=== PATIENT | male | born 1960 | race Caucasian/White ===

== ENCOUNTER 2016-10-03 17:20 | Inpatient (IN) ==
--- NOTE | 2016-10-03 17:46 | Emergency Department Note ---
Disposition Clinical Impression: Cellulitis of hand Dog bite Qualifiers: Encounter type: initial encounter Qualified Code(s): W54.0XXA - Bitten by dog, initial encounter Disposition: Admitted As Inpatient Condition: Fair Referrals: Gisele Vilchis DO [Primary Care Provider] - Forms: Work/School Release, ED Satisfaction Letter Time of Disposition: 19:50 Animal Bite HPI - General Chief Complaint: ED General Medical Stated Complaint: dog bite to right hand// swelling// R abd pain Time Seen by Provider: 10/03/16 17:34 Source: patient Mode of arrival: ambulatory Limitations: no limitations Nursing Notes Reviewed: Yes Vital Signs Reviewed: Yes - History of Present Illness HPI Narrative: 55-year-old male who comes in after his dog bit him on the right hand on Tuesday. States he's had increasing swelling and pain to the hand. Has a lot of trouble with making a fist. He states the swelling has progressed significantly. The dog is his dog is up-to-date on shots and they have him at home. Pt Subjective Complaint: animal bite Onset (ago): day(s) Animal: dog (2) Description of Animal: household pet Mechanism: bite Right: hand Pain Description: constant Associated symptoms: Reports: erythema - Related Data Allergies Allergy/AdvReac Type Severity Reaction Status Date / Time atorvastatin [From Lipitor] Allergy See Verified 10/03/16 17:30 Comments All systems ED: reviewed and negative except as stated. Constitutional: Denies: fever, chills, weakness, weight change Eyes: Denies: eye pain, eye discharge, vision change ENT ED: Denies: ear pain, throat pain, dental pain, hearing loss, epistaxis, congestion, dysphagia Cardiovascular: Denies: chest pain, palpitations, dyspnea on exertion, edema, syncope Respiratory: Denies: cough, dyspnea, wheezes, hemoptysis, stridor Gastrointestinal: Denies: abdominal pain, nausea, vomiting, diarrhea, constipation, hematemesis, melena, hematochezia Genitourinary: Denies: urgency, dysuria, frequency, hematuria Musculoskeletal: Reports: arthralgia. Denies: back pain, neck pain, myalgia Integumentary: Denies: rash, abrasion, lesions Neurological: Denies: headache, weakness, numbness, paresthesias, confusion, abnormal gait, vertigo Psychiatric: Denies: anxiety, depression, suicidal thoughts, homicidal thoughts , auditory hallucinations, visual hallucinations Endocrine: Denies: fatigue Hematological/Lymphatic: Denies: easy bleeding, easy bruising Allergic/Immunologic: Denies: facial swelling, urticaria Past Medical History - Past Medical History Medical history: Reports: CVA, hypertension - Social History Smoking Status: Current every day smoker Smokeless Tobacco Status: No Alcohol use: Reports: heavy Drug use: Reports: none Physical Exam - General Limitations: no limitations General appearance: alert - Head Head exam: atraumatic, normocephalic, normal inspection - Eye Eye exam: Present: normal appearance, PERRL, EOMI - ENT ENT exam: normal exam, normal oropharynx, mucous membranes moist - Neck Neck exam: Present: normal inspection, full ROM, trachea midline - Chest Chest inspection: Present: normal inspection, symmetric chest wall rise - Respiratory Respiratory exam: Present: normal lung sounds bilaterally - Cardiovascular Cardiovascular exam: Present: regular rate, normal rhythm, normal heart sounds - Abdominal Exam Abdominal exam: Present: soft, Non-Tender. Absent: tenderness, distention, guarding, rebound, rigidity - Expanded Upper Extremity Exam Hand exam: Present: other (Patient has a puncture wound at E [place] eminence with significant swelling and tenderness along the tendon.) - Expanded Lower Extremity Exam Neurovascular/Tendon exam: Present: normal capillary refill Gait: observed and normal - Back Exam Back exam: Present: normal inspection - Neurological Exam Neurological exam: Present: alert, oriented X3 - Psychiatric Psychiatric exam: Present: normal affect, normal mood - Skin Skin exam: Present: rash Course - Reevaluation(s) Reevaluation #1: 55-year-old who comes in with dog bite of his hand 2 days ago without signs of infection with some signs of deep infection with tenderness along the flexor tendon. CT scan does show a complex fluid collection in the flexor tendon and recommendations for MRI. I discussed the case with the hand surgeon who will see the patient in consult by go ahead and admit he was given IV Zosyn. Time: 19:49 - Consultations Consultation #1: Discussed with Dr. Arce, admit. Time: 17:55 Consultation #2: Discussed with , it. Time: 19:49 Vital Signs Temperature 98.4 F 10/03/16 17:25 Pulse Rate 90 10/03/16 17:25 Respiratory Rate 18 10/03/16 17:25 Blood Pressure 176/109 10/03/16 17:25 O2 Sat by Pulse Oximetry 98 10/03/16 17:25 Temperature 98.4 F 10/03/16 17:25 Pulse Rate 90 10/03/16 17:25 Respiratory Rate 18 10/03/16 17:25 Blood Pressure 176/109 10/03/16 17:25 O2 Sat by Pulse Oximetry 98 10/03/16 17:25 Animal Bite - Lab Data Lab results reviewed: Yes I reviewed the patient's lab results. Result diagrams: 10/03/16 18:09 10/03/16 18:09 Lab Results 10/03/16 10/03/16 10/03/16 Range/Units 18:09 18: 18:09 WBC 13.3 H (4.3-11.1) K/mcL RBC 4.41 (4.19-5.50) M/mcL Hgb 14.3 (12.9-16.9) g/dL Hct 41.6 (37.5-50.1) % MCV 94.3 (83.0-100.0) fL MCH 32.4 (28.0-33.3) pg MCHC 34.4 (31.6-35.5) g/dL RDW 12.1 (11.5-14.5) % Plt Count 226 (140-400) K/mcL MPV 10.4 (9.4-12.4) fL Immature Gran % 0.6 (0-4) % Seg Neutrophils % 60.5 % Lymphocytes % 27.8 % Monocytes % 8.8 % Eosinophils % 1.7 % Basophils % 0.6 % Neutrophils # 8.0 (1.6-8.9) K/mcL Lymphocytes # 3.7 (0.6-4.6) K/mcL Monocytes # 1.2 (0.0-1.3) K/mcL Eosinophils # 0.2 (0.0-0.6) K/mcL Basophils # 0.1 (0.0-0.2) K/mcL ESR 13 H (0-10) mm/hr Sodium 141 (136-145) mEq/L Potassium 2.8 L (3.5-4.5) mEq/L Chloride 103 (98-109) mEq/L Carbon Dioxide 28 (19-29) mEq/L BUN 15 (8-26) mg/dL Creatinine 0.89 (0.72-1.25) mg/dL Est GFR ( Amer) > 60 (> 60) Est GFR (Non-Af Amer) > 60 (> 60) BUN/Creatinine Ratio 17 (6-26) Glucose 97 (70-99) mg/dL Calculated Osmolality 293 (280-300) Calcium 9.4 (8.6-10.8) mg/dL - Radiology Data Radiology results reviewed: Yes I reviewed the patient's radiology results. Hand CT 10/03/16 17:42 IMPRESSION: 1. Concern for phlegmon and/or complex fluid involving the index finger flexor tendon sheath at the level the palm, with effacement of the deep palmar space, and with soft tissue swelling and likely phlegmon distal to the muscles of the thenar eminence. Further evaluation with MRI with contrast is recommended. D/ / Rd Ibrahim MD / Rd Ibrahim MD Interpreting Provider: Rd Ibrahim MD
[2016-10-03] MEDS ORDERED: Piperacillin/Tazobactam 3.375 GM in D5% in Water (Mini-Bag+) 100 ML IVPB ONE (17:49)
[2016-10-03 18:17] LABS: Basophils # 0.1 K/mcL (0.0-0.2); Basophils % 0.6 %; Eosinophils # 0.2 K/mcL (0.0-0.6); Eosinophils % 1.7 %; Hematocrit 41.6 % (37.5-50.1); Hemoglobin 14.3 g/dL (12.9-16.9); Immature Granulocytes % 0.6 % (0-4); Lymphocytes # 3.7 K/mcL (0.6-4.6); Lymphocytes % 27.8 %; Mean Corpuscular HGB Conc 34.4 g/dL (31.6-35.5); Mean Corpuscular Hemoglobin 32.4 pg (28.0-33.3); Mean Corpuscular Volume 94.3 fL (83.0-100.0); Mean Platelet Volume 10.4 fL (9.4-12.4); Monocytes # 1.2 K/mcL (0.0-1.3); Monocytes % 8.8 %; Platelet Count 226 K/mcL (140-400); Red Blood Count 4.41 M/mcL (4.19-5.50); Red Cell Distribution Width 12.1 % (11.5-14.5); Segmented Neutrophils % 60.5 %
[2016-10-03 18:27] LABS: BUN/Creatinine Ratio 17 (6-26); Blood Urea Nitrogen 15 mg/dL (8-26); Calcium 9.4 mg/dL (8.6-10.8); Carbon Dioxide 28 mEq/L (19-29); Chloride 103 mEq/L (98-109); Glucose 97 mg/dL (70-99); Osmolality,Calculated 293 (280-300); Potassium 2.8 mEq/L (3.5-4.5); Sodium 141 mEq/L (136-145); eGFR For African Americans > 60 (> 60); eGFR For Non-African Americans > 60 (> 60)
[2016-10-03] MEDS ORDERED: Tdap (Boostrix) Vaccine 0.5 ML SYRINGE IM ONE (19:51)
--- NOTE | 2016-10-03 20:02 | Internal Med History&Physical ---
Date of Encounter: 10/04/16 Time of Encounter: 20:00 Assessment and Plan (1) Cellulitis of hand Current visit: Yes Status: Acute 2/2 dog bite. no fever , has mild leucocytosis. will continue IV zosyn at this time. hand CT concerning for phlegmon. will elevate hand. cover with analgesics/ (2) HTN (hypertension) Current visit: Yes Status: Acute will continue home meds, BP stable Qualifiers: Hypertension type: essential hypertension Qualified Code(s): I10 - Essential (primary) hypertension (3) Dog bite Current visit: Yes Status: Acute as above Qualifiers: Encounter type: initial encounter Qualified Code(s): W54.0XXA - Bitten by dog, initial encounter (4) Hypokalemia Current visit: Yes Status: Acute potassium 2.8 will supplement. meshak chem in morn. Internal Medicine - H&P: HPI Chief complaint: dog bite Admitted From: Home Plans for Post Hospital Care: Home History of present illness: Mr. Bang is a 55 year old male with PMH of HTN who comes in with dog bite of his hand 2 days ago. he says the swelling is getting worse. he denies any fever or worsening pain. CT scan does show a complex fluid collection in the flexor tendon and recommendations for MRI. case was discussed with Dr. Arce we will see the patient in consultation. Patient denies any other complaints, no nausea vomiting or diarrhea. He has taken no antibiotics are pain medications at home. Patient was given IV Zosyn at Ed. Past Med Surg Social Fam HX - Past Medical History Medical history: CVA, hypertension - Social History Smoking Status: Current every day smoker Smokeless Tobacco Status: No Alcohol use: heavy Drug use: none - Family History Sister History Unknown: Yes Name: Rosibel Mcdaniel Age: 70 Internal Medicine - H&P: Meds Aspirin [Ecotrin] 325 mg PO DAILY 10/03/16 [History] LevETIRAcetam [Keppra] 500 mg PO BID 10/03/16 [History] Lisinopril-HCTZ 20-12.5 [Prinzide 20-12.5] 1 each PO DAILY 10/03/16 [History] Rosuvastatin [Crestor] 40 mg PO HS 10/03/16 [History] Sertraline [Zoloft] 50 mg PO DAILY 10/03/16 [History] amLODIPine [Norvasc] 10 mg PO HS 10/03/16 [History] traZODone [TraZODone] 25 mg PO HS 10/03/16 [History] Allergies atorvastatin [From Lipitor] Allergy (Verified 10/03/16 17:30) See Comments All Systems PM: A 10-system review of systems was performed and is negative for pertinent findings except as documented above in the HPI. - Constitutional Constitutional: as per HPI - EENT Eyes: as per HPI Ears: as per HPI Nose, mouth and throat: as per HPI - Breasts Breasts: as per HPI - Cardiovascular Cardiovascular ROS IM: as per HPI - Respiratory Respiratory: as per HPI - Gastrointestinal Gastrointestinal: as per HPI - Genitourinary Genitourinary ROS male: as per HPI - Constitutional Vitals: Temp Pulse Resp BP Pulse Ox 98.4 F 90 18 176/109 98 10/03/16 17:25 10/03/16 17:25 10/03/16 17:25 10/03/16 17:25 10/03/16 17:25 General appearance: Present: A&O X 3, no acute distress Exam: neck- supple chest- b/l clear, no added sounds CVS-s1 and s2, no mr/g/ abd-soft, non tender, bs are present ext- right hand swollen and red more in the lateral side with a bite hollie, mild pus discharge, no signs of compartment syndrome. Internal Med - H&P Results - Labs CBC & Chem 7: 10/04/16 04:39 10/04/16 04:39 Labs: Short CBC 10/03/16 Range/Units 18:09 WBC 13.3 H (4.3-11.1) K/mcL Hgb 14.3 (12.9-16.9) g/dL Hct 41.6 (37.5-50.1) % Plt Count 226 (140-400) K/mcL Neutrophils # 8.0 (1.6-8.9) K/mcL BMP 10/03/16 18:09 Sodium 141 Potassium 2.8 L Chloride 103 Carbon Dioxide 28 BUN 15 Creatinine 0.89 Glucose 97 Calcium 9.4 - Impressions ITS Impressions Hand CT 10/03/16 17:42 IMPRESSION: 1. Concern for phlegmon and/or complex fluid involving the index finger flexor tendon sheath at the level the palm, with effacement of the deep palmar space, and with soft tissue swelling and likely phlegmon distal to the muscles of the thenar eminence. Further evaluation with MRI with contrast is recommended. D/ / Rd Ibrahim MD / Rd Ibrahim MD Interpreting Provider: Rd Ibrahim MD
[2016-10-03] MEDS ORDERED: Naloxone 0.4 MG/ML INJ IVP PRN (20:09)
[2016-10-03] MEDS ORDERED: Ibuprofen 400 MG TABLET PO ONE (22:45)
[2016-10-03] MEDS: *HR* HYDROmorphone (PF) 1 MG/ML SYRINGE IVP PRN (23:51)
[2016-10-04] MEDS: Piperacillin/Tazobactam 3.375 GM in D5% in Water (Mini-Bag+) 100 ML IVPB SCH ×3 (03:48→19:12)
[2016-10-04] MEDS: *HR* HYDROmorphone (PF) 1 MG/ML SYRINGE IVP PRN ×3 (03:49→17:20)
[2016-10-04 05:08] LABS: Basophils # 0.1 K/mcL (0.0-0.2); Basophils % 0.7 %; Eosinophils # 0.4 K/mcL (0.0-0.6); Hematocrit 41.8 % (37.5-50.1); Hemoglobin 14.1 g/dL (12.9-16.9); Immature Granulocytes % 0.7 % (0-4); Lymphocytes # 4.5 K/mcL (0.6-4.6); Lymphocytes % 38.2 %; Mean Corpuscular HGB Conc 33.7 g/dL (31.6-35.5); Mean Corpuscular Hemoglobin 32.3 pg (28.0-33.3); Mean Corpuscular Volume 95.9 fL (83.0-100.0); Mean Platelet Volume 10.9 fL (9.4-12.4); Monocytes # 1.1 K/mcL (0.0-1.3); Monocytes % 9.4 %; Neutrophils # 5.6 K/mcL (1.6-8.9); Platelet Count 217 K/mcL (140-400); Red Blood Count 4.36 M/mcL (4.19-5.50); Red Cell Distribution Width 12.1 % (11.5-14.5)
[2016-10-04 05:22] LABS: BUN/Creatinine Ratio 16 (6-26); Blood Urea Nitrogen 15 mg/dL (8-26); Calcium 9.1 mg/dL (8.6-10.8); Carbon Dioxide 27 mEq/L (19-29); Chloride 105 mEq/L (98-109); Glucose 97 mg/dL (70-99); Osmolality,Calculated 291 (280-300); Potassium 3.8 mEq/L (3.5-4.5); Sodium 140 mEq/L (136-145); eGFR For African Americans > 60 (> 60); eGFR For Non-African Americans > 60 (> 60)
[2016-10-04] MEDS: Lisinopril-HCTZ 20-12.5mg TABLET PO SCH (08:35)
[2016-10-04] MEDS: levETIRAcetam 250 MG TABLET PO SCH ×2 (08:35→21:11)
[2016-10-04] MEDS: Aspirin Enteric Coated 325 MG Tablet PO SCH (08:35)
[2016-10-04] MEDS: *HR* Enoxaparin 30 MG/0.3 ML SYRINGE SQ SCH (08:35)
--- NOTE | 2016-10-04 13:08 | Orthopedic Consult Note ---
Date of Encounter: 10/04/16 Time of Encounter: 12:30 Assessment and Plan (1) Cellulitis of hand Current Visit: Yes Status: Acute Patient showing improvement in erythema, swelling and motion after abx overnight. Will continue IV zosyn at least 1 more day and if continues to show improvement recommend DC home on PO abx. Not surgical at this time. WBC decreased from 13.3 to 11.6. Recommend checking ESR and CRP with tomorrow's labs. Continue ROM of hand as tolerated. Elevate hand inside stockinette from IV pole overnight. History of Present Illness Chief complaint: right hand pain HPI: Mr. Bang is a 55 year old male who presented to the ER yesterday for right hand pain and swelling. He was bitten by a dog on 10/01/16 and the swelling and redness progressed over the last couple of days. Pain is localized to the thumb and palm with no radiation and is a constant aching 1/10 at rest and 2/10 with motion. He has one puncture wound to the palm of the hand that he states had a little bit of bloody drainage yesterday but denies any purulent drainage. Denies any numbness or stiffness more than normal as he has some chronic limitation secondary to previous stroke. He feels that since getting the antibiotics overnight the swelling, redness and his motion are all improved today. Denies any fevers, chest pain, SOB. Past Med Surg Social Fam HX - Past Medical History Medical history: CVA, hypertension Psychiatric history: depression - Social History Smoking Status: Current every day smoker Packs per day: <1 Smokeless Tobacco Status: No Alcohol use: heavy Drug use: none - Family History Sister History Unknown: Yes Name: Rosibel Mcdaniel Age: 70 Medications and Allergies Aspirin [Ecotrin] 325 mg PO DAILY 10/03/16 [History] LevETIRAcetam [Keppra] 750 mg PO BID 10/03/16 [History] Rosuvastatin [Crestor] 20 mg PO HS 10/03/16 [History] Sertraline [Zoloft] 100 mg PO DAILY 10/03/16 [History] amLODIPine [Norvasc] 5 mg PO HS 10/03/16 [History] traZODone [TraZODone] 50 mg PO HS 10/03/16 [History] Lisinopril/Hydrochlorothiazide [Zestoretic 20-25 mg Tablet] 1 tab PO DAILY 10/04 [History] Tizanidine HCl [Zanaflex] 4 mg PO HS PRN 10/04/16 [History] Allergies atorvastatin [From Lipitor] Allergy (Verified 10/04/16 09:53) Muscle Pain All Systems Reviewed: A 10-system review of systems was performed and is negative for pertinent findings except as documented above in the HPI. - Constitutional Constitutional: as per HPI - Cardiovascular Cardiovascular: as per HPI - Respiratory Respiratory: as per HPI - Musculoskeletal Musculoskeletal: as per HPI Physical Exam - Constitutional Vitals: Temp Pulse Resp BP Pulse Ox 97.8 F 60 12 167/89 97 10/04/16 12:07 10/04/16 12:07 10/04/16 12:07 10/04/16 12:10/04/16 12:07 - Wrist & Hand right Location of pain: palmar hand, thumb (closed puncture wound noted to volar side thenar eminence at base of thumb with minimal surrounding erythema and no active drainage. Mild stiffness to 1st MCPJ but good motion of IPJ and all other digits. Minimal tenderness to palpation along volar side of thumb and thenar eminence with no fluctance noted around puncture wound. NV intact, Brisk cap refill) Results - Labs Result Diagrams: 10/04/16 04:39 10/04/16 04:39 Labs: Abnormal lab results WBC 11.6 K/mcL (4.3-11.1) H 10/04/16 04:39 ESR 13 mm/hr (0-10) H 10/03/16 18:09 H & H 10/04/16 Range/Units 04:39 Hgb 14.1 (12.9-16.9) g/dL Hct 41.8 (37.5-50.1) % All other labs normal. - Diagnostic results Wrist/Hand MRI: report reviewed, image reviewed Wrist/Hand CT: report reviewed, image reviewed Consult Discharge Plan - Plan Referrals: Gisele Vilchis DO [Primary Care Provider] - - Attending Attestation Case and plan of care discussed with supervising physician who was available for all aspects of care.
--- NOTE | 2016-10-04 16:37 | Internal Med Progress Note ---
<Lexy Lai - Last Filed: 10/04/16 17:58> Date of Encounter: 10/04/16 Time of Encounter: 11:00 - Assessment and plan (1) Cellulitis of hand Current Visit: Yes Status: Acute Assessment and plan: Dog bite on hand 2 days ago. Erythema of the hand. Patient stated hand looks better than it did. CT and MRI of hand demonstrated cellulitis of 1st digit and hand. No evidence of abscess or osteomyelitis. Patient is currently on Zosyn Ortho was consulted and does not believe this is surgical, discharge tomorrow with antibiotics. X-ray hip did not reveal an acute osseous abnormality. Osteoarthritis of the hips b/l present. Will follow-up with outpatient PT. (2) HTN (hypertension) Current Visit: Yes Status: Acute Assessment and plan: Patient currently has an elevated pressure 147/62, however has decreased from earlier when it was 167/89. We will continue to monitor Qualifiers: Hypertension type: essential hypertension Qualified Code(s): I10 - Essential (primary) hypertension (3) Hypokalemia Current Visit: Yes Status: Acute Assessment and plan: Patient's hypokalemia has resolved it is currently 3.8 - Subjective Interval history: Patient laying down completely in bed. He denied fever, chills, nausea, vomiting, chest pain, shortness of breathe, confusion, dizziness, abdominal pain patient stated his hand does not hurt as much as it did yesterday and looks better. Patient said he has right hip discomfort when he walks. It started 2 weeks ago when at a doctor appointment his leg was moved around a lot and then the next 2 days he did outdoor physical work such as mowing the lawn. And that is when he started noticed the discomfort. - Constitutional Vitals: Temp Pulse Resp BP Pulse Ox 97.8 F 60 12 167/89 97 10/04/16 12:07 10/04/16 12:07 10/04/16 12:07 10/04/16 12:10/04/16 12:07 General appearance: Present: A&O X 3, pleasant, no acute distress - Head Head exam: Present: atraumatic, normocephalic - Neck Neck exam general surgery: Present: supple, trachea midline. Absent: lymphadenopathy, tenderness - Respiratory Respiratory exam: Present: CTAB. Absent: stridor, wheezes - Cardiovascular Cardiovascular exam: Present: RRR, +S1, +S2 - GI/Abdominal GI/Abdominal exam: Present: normal bowel sounds, soft. Absent: guarding - Extremities Exam Extremities exam: Present: warm. Absent: full ROM, mottling Additional comments: Erythema is decreasing on hand. - Skin Skin exam: Present: dry, erythema (On hand), warm Internal Medicine: Result - Labs CBC & Chem 7: 10/04/16 04:39 10/04/16 04:39 Labs: Short CBC 10/04/16 Range/Units 04:39 WBC 11.6 H (4.3-11.1) K/mcL Hgb 14.1 (12.9-16.9) g/dL Hct 41.8 (37.5-50.1) % Plt Count 217 (140-400) K/mcL Neutrophils # 5.6 (1.6-8.9) K/mcL BMP 10/04/16 04:39 Sodium 140 Potassium 3.8 D Chloride 105 Carbon Dioxide 27 BUN 15 Creatinine 0.94 Glucose 97 Calcium 9.1 - Impressions Impressions Hip X-Ray 10/03/16 21:40 IMPRESSION: 1. No acute osseous abnormality of the right hip. 2. Mild osteoarthritis of the hips bilaterally. D/ / Sam Teran MD / Sam Teran MD Interpreting Provider: Sam Teran MD Hand MRI 10/04/16 09:40 IMPRESSION: 1. First digit and hand cellulitis with thenar myositis. No soft tissue abscess. 2. Flexor pollicis longus infectious tenosynovitis that extends from the first digit tip to the level of the flexor retinaculum. There is no evidence of inflammation within the flexor retinaculum. 3. Normal hand alignment with no evidence of osteomyelitis or acute fracture. Mild first MCP synovitis which may be reactive in nature. There is no significant effusion or marginal edema to suggest infectious arthritis. D/ 10/04/2016 11:28:01 Matthew Smith MD / jordi Interpreting Provider: Matthew Smith MD Consult Discharge Plan - Plan Referrals: Gisele Vilchis, DO [Primary Care Provider] - <Jony Villegas - Last Filed: 10/04/16 19:53> Date of Encounter: 10/04/16 - Constitutional Vitals: Temp Pulse Resp BP Pulse Ox 97.9 F 68 14 147/82 98 10/04/16 16:59 10/04/16 16:59 10/04/16 16:59 10/04/16 16:59 10/04/16 16:59 Internal Medicine: Result - Labs CBC & Chem 7: 10/04/16 04:39 10/04/16 04:39 - Attending Attestation I examined this patient and my medical decision-making was reviewed with the Resident Physician, Dr Lai. I agree with the documented findings, disposition and treatment plan as described except to the extent set forth below. patient requires inpatient admission due to severe hand cellulitis needing treatment with IV antibiotics.ffrequent neurovascular checks. Hand surgery consult. For past medical history, family h history, social history and review of systems please refer to the H&P dictated yesterday at this institution. There are no changes or updates. patient was bitten by his dog and noted swelling and pain and cleardrainage from his hand wound.on exam there is cellulitis of his hand. We will continue treatment with Zosyn.we will follow-up with hand surgery.
[2016-10-04] MEDS ORDERED: traZODone 50 MG TABLET PO SCH (21:00)
[2016-10-04] MEDS ORDERED: amLODIPine 5 MG TABLET PO SCH (21:00)
[2016-10-04] MEDS: *HR* HYDROcodone/Acet 5/325 mg TABLET PO PRN (21:11)
[2016-10-05] MEDS: Piperacillin/Tazobactam 3.375 GM in D5% in Water (Mini-Bag+) 100 ML IVPB SCH ×2 (03:50→11:08)
[2016-10-05] MEDS: *HR* HYDROmorphone (PF) 1 MG/ML SYRINGE IVP PRN (03:55)
[2016-10-05] MEDS: *HR* Enoxaparin 30 MG/0.3 ML SYRINGE SQ SCH (06:05)
[2016-10-05 07:43] LABS: Basophils # 0.1 K/mcL (0.0-0.2); Basophils % 0.7 %; Eosinophils # 0.4 K/mcL (0.0-0.6); Eosinophils % 3.9 %; Hematocrit 42.1 % (37.5-50.1); Hemoglobin 14.5 g/dL (12.9-16.9); Immature Granulocytes % 0.4 % (0-4); Lymphocytes # 3.7 K/mcL (0.6-4.6); Lymphocytes % 36.9 %; Mean Corpuscular HGB Conc 34.4 g/dL (31.6-35.5); Mean Corpuscular Hemoglobin 33.3 pg (28.0-33.3); Mean Corpuscular Volume 96.8 fL (83.0-100.0); Mean Platelet Volume 11.1 fL (9.4-12.4); Monocytes # 0.9 K/mcL (0.0-1.3); Monocytes % 9.1 %; Platelet Count 214 K/mcL (140-400); Red Blood Count 4.35 M/mcL (4.19-5.50)
[2016-10-05 08:04] LABS: BUN/Creatinine Ratio 16 (6-26); Blood Urea Nitrogen 16 mg/dL (8-26); Calcium 9.4 mg/dL (8.6-10.8); Carbon Dioxide 32 mEq/L (19-29); Chloride 103 mEq/L (98-109); Glucose 103 mg/dL (70-99); Osmolality,Calculated 293 (280-300); Sodium 141 mEq/L (136-145); eGFR For African Americans > 60 (> 60); eGFR For Non-African Americans > 60 (> 60)
[2016-10-05] MEDS: levETIRAcetam 250 MG TABLET PO SCH (08:43)
[2016-10-05] MEDS: Aspirin Enteric Coated 325 MG Tablet PO SCH (08:43)
[2016-10-05] MEDS: Lisinopril-HCTZ 20-12.5mg TABLET PO SCH (08:43)
[2016-10-05] MEDS: *HR* HYDROcodone/Acet 5/325 mg TABLET PO PRN ×2 (08:43→15:28)
--- NOTE | 2016-10-05 14:24 | Orthopedics Progress Note ---
Date of Encounter: 10/05/16 Time of Encounter: 14:00 - Assessment and Plan (1) Cellulitis of hand Current Visit: Yes Status: Acute Patient continues to show improvement in erythema, swelling and motion. Will need to DC on PO abx WBC continues to decrease although ESR did increase from 13 to 15. Continue elevate and ROM of hand as tolerated. continue HEP upon DC. Follow up in AB office in 1 week. Subjective Principal diagnosis: right hand cellulitis Interval history: Patient doing well today with no concerns about the hand. States the hand feels much better and he feels that the swelling and redness has gone down. States therapy worked with him and showed him the home exercises to do on his own. Denies any new numbness or tingling. Denies any drainage from puncture wound. Denies any fever, chest pain, SOB. Objective Vital signs: Vital Signs Temp Pulse Resp BP Pulse Ox 10/05/16 10:53 98.1 F 61 16 126/74 97 10/05/16 07:57 97.9 F 60 16 132/85 96 10/05/16 04:35 97.7 F 60 16 133/76 10/05/16 01:26 98.0 F 59 15 125/84 95 10/04/16 20:04 98.4 F 67 15 132/79 97 Intake and Output 10/04/16 10/05/16 10/05/16 23:59 07:59 15:59 Intake Total 340 / 440 0 / 0 580 / 580 Output Total 450 / 450 200 / 200 0 / 0 Balance -110 / -10 -200 / -200 580 / 580 Intake: IV Fluids 100 / 200 100 / 100 Zosyn 3.375 GM In 100 / 200 100 / 100 Dextrose 5% (Minibag+) 100 ML 100 ML @ 25 mls/hr IVPB Q8H [facility] Rx#: [id number] Oral 240 / 240 0 / 0 480 / 480 Output: Urine 450 / 450 200 / 200 0 / 0 Other: Meal Dinner Lunch Percent of Meal Consumed 100% 100% # Bowel Movements 0 0 Weight 66 kg Patient Weight 10/05/16 23:59 Weight 66 kg Incision: healing (minimal erythema directly around the puncture wound which is closed with no drainage. Minimal swelling of the hand. no tenderness or fluctuance to palpation around the puncture wound. Improved ROM of hand almost full ROM achieved. NV intact, brisk cap refill) - Labs CBC & BMP: 10/05/16 07:09 10/05/16 07:09 Labs: Abnormal lab results ESR 19 mm/hr (0-10) H 10/05/16 09:26 Carbon Dioxide 32 mEq/L (19-29) H 10/05/16 07:09 Glucose 103 mg/dL (70-99) H 10/05/16 07:09 C-Reactive Protein 15 mg/L (Less than 5) H 10/05/16 09:26 Consult Discharge Plan - Plan Referrals: Gisele Vilchis DO [Primary Care Provider] - 10/13/16 2:00 pm Prescriptions: Amoxicillin/Clavulanate [Augmentin] 875 mg PO BIDWM #14 tablet HYDROcodone/Acet 5/325 mg [Butler 5-325 mg] 1 tab PO Q6H PRN #15 tablet PRN Reason: Moderate Pain (4-6) Saccharomyces Boulardii [Florastor] 250 mg PO BID #14 capsule
[2016-10-05 15:00] VITALS: BP 127/80
--- NOTE | 2016-10-05 16:25 | Discharge Summary ---
Date of Encounter: 10/05/16 Time of Encounter: 16:23 - Discharge Diagnosis (1) Low back pain Priority: Secondary Status: Chronic Qualifiers: Qualified Code(s): M54.5 - Low back pain (2) Dog bite Priority: Primary Status: Acute Qualifiers: Encounter type: initial encounter Qualified Code(s): W54.0XXA - Bitten by dog, initial encounter (3) Cellulitis of hand Priority: Primary Status: Acute (4) HTN (hypertension) Priority: Secondary Status: Acute Qualifiers: Hypertension type: essential hypertension Qualified Code(s): I10 - Essential (primary) hypertension - Discharge Medications Home Medications: Aspirin [Ecotrin] 325 mg PO DAILY 10/03/16 [History] LevETIRAcetam [Keppra] 750 mg PO BID 10/03/16 [History] Rosuvastatin [Crestor] 20 mg PO HS 10/03/16 [History] Sertraline [Zoloft] 100 mg PO DAILY 10/03/16 [History] amLODIPine [Norvasc] 5 mg PO HS 10/03/16 [History] traZODone [TraZODone] 50 mg PO HS 10/03/16 [History] Lisinopril/Hydrochlorothiazide [Zestoretic 20-25 mg Tablet] 1 tab PO DAILY 10/04 [History] Tizanidine HCl [Zanaflex] 4 mg PO HS PRN 10/04/16 [History] Amoxicillin/Clavulanate [Augmentin] 875 mg PO BIDWM #14 tablet 10/05/16 [Rx] HYDROcodone/Acet 5/325 mg [[place] 5-325 mg] 1 tab PO Q6H PRN #15 tablet 10/05/16 [Rx] Saccharomyces Boulardii [Florastor] 250 mg PO BID #14 capsule 10/05/16 [Rx] Allergies/Adverse Reactions: Allergies atorvastatin [From Lipitor] Allergy (Verified 10/04/16 09:53) Muscle Pain Date of admission: 10/04/16 18:09 Primary care physician: Gisele Vilchis DO Anticipated date of discharge: 10/05/16 - Patient Status Disposition: Home, Self-Care Condition: Fair Overall status at discharge: patient is back to baseline - Discharge Instructions Follow Up With: Gisele Vilchis DO [Primary Care Provider] - 10/13/16 2:00 pm - Diet and Activity Activity: increase activity as tolerated Diet: advance to your usual diet Hospital course: Mr. Bang is a 55 year old male admitted with Rt hand cellulitis developed after a dog bite. Patient was admitted in the hospital and started on empirical antibiotic with IV Zosyn, his hand cellulitis started improving. Patient also had MRI of the hand done which did not show any osteomyelitis, other than some myositis. So I am discharging him home in a stable condition today with the oral antibiotic Augmentin for seven more days. Patient also complained about lower back pain, for which we did lumbar spine x ray which showed chronic DJD changes. Pt was seen by Ortho too, recommend out pt PT. - Time Spent with Patient Total time spent providing and/or coordinating discharge services: Less than 30 minutes - Constitutional Vitals: Temp Pulse Resp BP Pulse Ox 97.8 F 61 16 127/80 97 10/05/16 14:59 10/05/16 14:59 10/05/16 14:59 10/05/16 14:59 10/05/16 14:59 General appearance: Present: A&O X 3, pleasant, no acute distress - Respiratory Respiratory exam: Present: CTAB. Absent: accessory muscle use, rales, rhonchi, wheezes - Cardiovascular Cardiovascular exam: Present: RRR, +S1, +S2. Absent: diastolic murmur, gallop, rubs, systolic murmur - Extremities Exam Additional comments: Improved erythema and swelling over Rt hand and wrist regions
== END 2016-10-05 17:03 | disposition home or self-care (01) | DRG 603 ==
LOC: 3ANU 17:20 → EMEROO 17:20 → SUATTDRO 20:15 → 3ANU 20:51
PROVIDERS: ADMIT Hospitalist; ATTEND Internal Medicine